=== PATIENT | female | born 1995 | race Caucasian/White ===

== ENCOUNTER 2020-06-10 21:42 | Observation (INO) | payer OTHER, SELFPAY ==
[2020-06-10 22:41] LABS: Add Urine Microscopic? YES; Appearance Urine Cloudy (Clear); Bacteria Urine Trace /hpf; Bilirubin Urine Negative (Negative); Blood Urine Negative (Negative); Color Urine Yellow (Yellow); Glucose Urine UA Negative (Negative); Ketones Urine 1+ mg/dL (Negative); Leukocyte Esterase Ur 3+ LEU/UL (NEGATIVE); Mucus Urine Heavy /lpf; Nitrate Urine Negative (Negative); Protein Urine 1+ mg/dL (Negative); Specific Grav Ur 1.027 (1.001-1.035); Squamous Epithelial Cell Urine Many /hpf (Few); Urobilinogen Urine Negative mg/dL (<2.0); WBC Urine 31-50 /hpf (0-3)
[2020-06-10 22:49] LABS: Alanine Aminotransferase 15 U/L (4-35); Albumin Level 4.6 g/dL (3.5-5.1); Alkaline Phosphatase 70 U/L (38-126); Anion Gap 10 mmol/L (8-16); Aspartate Amino Transferase 25 U/L (14-36); Blood Urea Nitrogen 8 mg/dL (7-17); Calcium 9.7 mg/dL (8.4-10.2); Carbon Dioxide 24 mmol/L (22-30); Chloride 103 mmol/L (98-107); Estimated Glomerular Filt Rate > 60; Glucose 93 mg/dL (65-105); Potassium 3.6 mmol/L (3.4-5.0); Sodium 137 mmol/L (137-145)
[2020-06-10 23:02] VITALS: BP 101/52; PULSE 59; TEMP 36.3
[2020-06-10] MEDS: DEXTROSE 5%/LACTATED RINGERS 1,000 ML 999 ML IV CONT (23:02)
[2020-06-10] MEDS: FAMOTIDINE 20 MG/2 ML VIAL IV PUSH (23:03)
[2020-06-10] MEDS: ONDANSETRON INJ 4 MG/2 ML VIAL IV PUSH (23:03)
[2020-06-10 23:04] VITALS: BMI 21.0
--- NOTE | 2020-06-10 23:05 | OBADM ---
This patient, Jammie Miller, admitted to the OB room OB Post 113 for observation. Patient/family oriented to hospital policies and general routines including ID bracelet, bed and alarms, visiting hours, pain management, procedures, bathroom and other care routines, personal items, smoking policy, room service/diet, and visiting hours. Patient/Family are encouraged to report perceived risks to care and to ask questions if they do not understand what they are told or what they should do.
[2020-06-10] MEDS: DEXTROSE 5%/LACTATED RINGERS 1,000 ML 200 ML IV CONT (23:56)
[2020-06-11] MEDS: DEXTROSE 5%/LACTATED RINGERS 1,000 ML 200 ML IV CONT (05:02)
--- NOTE | 2020-06-11 05:07 | PC.NURSE ---
In to check on pt. Pt denies vomiting during the night. No request for zofran. Crackers and andre mist given. Pt states she has sipped on water. No void since admission.
[2020-06-11 07:19] VITALS: BP 92/55; PULSE 73; TEMP 37.1
[2020-06-11] MEDS: ONDANSETRON INJ 4 MG/2 ML VIAL IV PUSH (08:47)
[2020-06-11] MEDS: ACETAMINOPHEN 500 MG TABLET 1000 MG PO (08:48)
--- NOTE | 2020-06-12 12:47 | PM.OBTRLD ---
OB - Triage/Final Diagnosis Evaluation Laboratory results: Laboratory Tests 06/10/20 06/10/20 22:29 22:29 Sodium 137 Potassium 3.6 Chloride 103 Carbon Dioxide 24 Anion Gap 10 BUN 8 Creatinine 0.50 L Estim Creat Clear Calc Not Reportable Estimated GFR > 60 Glucose 93 Calcium 9.7 Total Bilirubin 1.0 AST 25 ALT 15 Alkaline Phosphatase 70 Total Protein 8.0 Albumin 4.6 Urine Color Yellow Urine Appearance Cloudy H Urine pH 6.0 Ur Specific [place] 1.027 Urine Protein 1+ H Urine Glucose (UA) Negative Urine Ketones 1+ H Ur Blood (Man) Negative Urine Nitrate Negative Urine Bilirubin Negative Urine Urobilinogen Negative Ur Leukocyte Esterase 3+ H Urine RBC 3-5 H Urine WBC 31-50 H Ur Squamous Epith Cells Many H Urine Bacteria Trace Urine Mucus Heavy H Final Diagnosis (1) Hyperemesis affecting , antepartum: Code(s): O21.0 - Mild hyperemesis gravidarum Status: Acute
== END 2020-06-11 09:53 | disposition home or self-care (01) ==
PROVIDERS: Admitting Provider Obstetrics & Gynecology; PCP Internal Medicine; Visit Provider Obstetrics & Gynecology
DX: O21.0 Mild hyperemesis gravidarum (principal); Z3A.00 Weeks of gestation of pregnancy not specified
CPT/HCPCS: 36415; 80053; 81001; 87086; 87088; 96361; 96374; 96375; A9270; G0378; G0379; J2405; J7121

== ENCOUNTER 2021-01-04 17:14 | Inpatient (IN) | payer OTHER, SELFPAY ==
[2021-01-04] VITALS (10 sets, daily range): BP systolic 101–115; BP diastolic 62–74; PULSE 63–92; TEMP 36.5
--- NOTE | 2021-01-04 17:45 | LDADM ---
This patient, Jammie Miller, was admitted to Labor/Delivery/Recovery 106 on 01/04/21 at 17:14. Plans for labor, pain management and were discussed with patient. Patient/family oriented to hospital policies and general routines including ID bracelet, bed and alarms, visiting hours, pain management, procedures, bathroom and other care routines, personal items, smoking policy, room service/diet and guest tray routines, security routines, and visiting hours. Patient/Family are encouraged to report perceived risks to care and to ask questions if they do not understand what they are told or what they should do. See OBIX for further documentation.
[2021-01-04 18:00] LABS: Basophils Percent Auto 0.2 % (0.2-1.2); Eosinophils Absolute Auto 0.1 K/mm3 (0-0.3); Eosinophils Percent Auto 0.7 % (0-4.4); Hematocrit 34.8 % (37.0-47.0); Immature Granulocyte Absolute 0.05 K/mm3 (0.00-0.031); Immature Granulocyte Percent A 0.6 % (0-0.5); Lymphocytes Absolute Auto 1.43 K/mm3 (0.9-3.2); Lymphocytes Percent Auto 16.1 % (18.3-44.2); Mean Corpuscular HGB Conc 34.5 g/dl (32-36); Mean Corpuscular Hemoglobin 32.5 pg (26-34); Mean Corpuscular Volume 94.3 fl (80-100); Monocytes Absolute Auto 0.4 K/mm3 (0.1-0.6); Monocytes Percent Auto 4.7 % (2.6-8.5); Neutrophils Absolute Auto 6.9 K/mm3 (1.3-6.7); Neutrophils Percent Auto 77.7 % (45.5-73.1); Platelet Count Result 169 k/mm3 (150-375); Red Blood Count 3.69 M/mm3 (4.2-5.4); White Blood Count 8.9 K/mm3 (4.5-10.0)
[2021-01-04] MEDS: DINOPROSTONE 10 MG VAG INSERT VAGINAL (18:02)
--- NOTE | 2021-01-04 19:11 | P.PNAN_ITS ---
Anes - Initial Pre Proc Eval Procedure: labor epidural Date/Time: 01/04/21 19:11 Surgeon: Eliceo Rosas MD Pre Op Diagnosis: labor pain Pre Op Diagnosis: ind Patient Data Age: 25 Gender: F Height: Weight: Last Vital Signs Temp 36.5 C 01/04/21 18:19 Pulse 92 01/04/21 19:00 BP 106/64 01/04/21 19:00 Allergies Allergy/AdvReac Type Severity Reaction Status Date / Time No Known Allergies Allergy Verified 06/10/20 22:32 Home Medications Medication Instructions Recorded Confirmed Type prenat.vits,brian,nvh-qpai-bhizv 1 tablet PO DAILY 06/10/20 12/31/20 History Laboratory Tests 01/04/21 01/04/21 01/04/21 17:49 17:49 17:49 WBC 8.9 K/mm3 K/mm3 (4.5-10.0) RBC 3.69 M/mm3 L M/mm3 (4.2-5.4) Hgb 12.0 g/dL g/dL (12.0-15.0) Hct 34.8 % L % (37.0-47.0) MCV 94.3 fl fl (80-100) MCH 32.5 pg pg (26-34) MCHC 34.5 g/dl g/dl (32-36) RDW 13.0 % % (11.5-14.5) Plt Count 169 k/mm3 k/mm3 (150-375) MPV 11.0 fl H fl (7.4-10.4) Immature Gran % (Auto) 0.6 % H % (0-0.5) Neut % (Auto) 77.7 % H % (45.5-73.1) Lymph % (Auto) 16.1 % L % (18.3-44.2) [place] % (Auto) 4.7 % % (2.6-8.5) Eos % (Auto) 0.7 % % (0-4.4) Baso % (Auto) 0.2 % % (0.2-1.2) Lymph # (Auto) 1.43 K/mm3 K/mm3 (0.9-3.2) [place] # (Auto) 0.4 K/mm3 K/mm3 (0.1-0.6) Eos # (Auto) 0.1 K/mm3 K/mm3 (0-0.3) Baso # (Auto) 0.0 K/mm3 K/mm3 (0.0-0.1) Abs Immat Gran (auto) 0.05 K/mm3 H K/mm3 (0.00-0.031) Absolute Neuts (auto) 6.9 K/mm3 H K/mm3 (1.3-6.7) Absolute Nucleated RBC 0.0 K/mm3 K/mm3 (0.0-0.012) Nucleated RBC % 0.0 % % (0.0-0.2) RPR Pending Blood Type O Positive Antibody Screen Negative Patient hx anesthesia problems: none Family hx anesthesia problems: none [facility] Family History Family History (Updated 12/31/20 @ 14:24 by Anayeli Haskins RN) Other No pertinent family history Social History Social History Smoking status: Never smoker Substance use: never Gender identity (if verbalized by the patient): Female Spiritual care concerns: No Anes - Eval Final PreProcedure Day of Procedure 01/04/21 19:11 Patient weight: normal ASA classification: II Anesthesia type and monitoring: regional epidural Informed Consent: The patient's anesthetic plan and its attendant risks and benefits were discussed with the patient/family/POA. Questions were solicited and answers provided to the satisfaction of the patient/family/POA.
[2021-01-05] VITALS (100 sets, daily range): BP systolic 92–128; BP diastolic 49–109; PULSE 60–91; RESP 15–16; TEMP 36.2–37.7; O2SAT 96–100
[2021-01-05] MEDS: fentaNYL CITRATE INJ (*CRX) 100 MCG/2 ML VIAL 50 MCG IV PUSH (03:12)
[2021-01-05] MEDS: fentaNYL CITRATE INJ (*CRX) 100 MCG/2 ML VIAL IV PUSH (04:25)
[2021-01-05] MEDS: LACTATED RINGERS 1,000 ML 125 ML IV CONT (05:15)
[2021-01-05] MEDS: OXYTOCIN 30 UNITS/NS 500 ML 30 UNITS/500 ML BAG IV CONT (05:21)
[2021-01-05 07:00] LABS: Rapid Plasma Reagin Non-Reactive (NonReactive)
--- NOTE | 2021-01-05 09:11 | WPDHPUPDATE1 ---
History and Physical Update Update Date/Time: 01/05/21 09:11 History and Physical has been reviewed, including an updated exam of the patient. There are NO changes in the patient's condition. Risks, benefits, and alternatives have been discussed and questions answered. Patient agrees to proceed with procedure.
--- NOTE | 2021-01-05 09:11 | WPDOBADMIT ---
Obstetrics - Admit Note Admission Note: record reviewed. No pertinent additions to the history and/or any subsequent changes in the physical findings that are not consistent with the expected course of the were found. Additions to the history and/or subsequent changes in the physical findings follow. None.
--- NOTE | 2021-01-05 09:11 | PM.OBPRVD ---
OB - Delivery Note Procedure Route of delivery: Episiotomy description: None Laceration Description: None Specimen: No Quantitative Blood Loss (ml): 300 Anesthesia type: Epidural Disposition: floor Narrative: Patient prepped in usual manner for this procedure. Maternal expulsive efforts readily delivered vertex with nuchal cord noted x2 and readily reduced. Rest of baby was delivered cord clamped and cut placenta delivered spontaneously. Uterus was well contracted. No significant bleeding at this point immediate postop condition mother and baby were both excellent. [place] Baby Weeks of gestation at delivery: 39 Infant gender: Female Weight (pounds): 7 Weight (ounces): 3 score one minute: 9 score five minutes: 9
[2021-01-05] MEDS: OXYTOCIN 30 UNITS/NS 500 ML 30 UNITS/500 ML BAG 125 UNITS IV CONT (09:41)
--- NOTE | 2021-01-05 12:25 | PC.NURSE ---
Patient transferred to post room # 283 via wheelchair. Support person present. Oriented to unit, room, information board, rooming in, admission packet and security measures. Patient verbalizes understanding. PT received education and instructions per one to one discussion, mom baby care guide and demonstration. pt and spouse both recipients of instructions. no barriers to learning noted.
--- NOTE | 2021-01-05 12:55 | PC.NURSE ---
Mother called out for assist with feeding. Mother reports infant eagerly latched for first feeding with minimal tenderness. Reviewed infant feeding cues, frequencies, duration of feedings, feeding elimination flow sheet, and signs of adequate intake. Demonstrated stimulation techniques to wake for feeding. Assisted with to breast. Reviewed positioning/alignment in cross cradle, holding breast in ?U? hold and guided asymmetrical latch on. Several attempts before able to latch correctly. nursed eagerly, with steady draws and frequent swallowing noted. Reviewed signs of a correct latch, effective nursing and suck swallow ratio. Infant would slip to shallow latch, mother reports tenderness. Demonstrated how to adjust latch more deeply while feeding. Mother reports she can feel change in latch and has no tenderness. Nipple care reviewed of lanolin after feedings, warm compresses and gel pads as needed. Suggested mother stimulate while feeding to increase stimulate, increase intake and to assist with maintaining deep latch. Instructed mother to call out for RN assistance if she is unable to latch for feeding or she has discomfort with nursing. Instructed feeding should be initiated three hours from start of last feeding or if feeding cues are noted before. Mother voiced understanding of information shared.
[2021-01-05] MEDS: DOCUSATE SODIUM 100 MG CAPSULE PO (17:32)
[2021-01-05] MEDS: IBUPROFEN 600 MG TABLET PO (23:58)
[2021-01-06] VITALS: BP 118/79; PULSE 70; RESP 18; TEMP 37.1
[2021-01-06 04:40] VITALS: BP 112/66; PULSE 75; RESP 17; TEMP 36.9
[2021-01-06 06:04] LABS: Hematocrit 30.7 % (37.0-47.0); Hemoglobin 10.4 g/dL (12.0-15.0)
--- NOTE | 2021-01-06 07:25 | WPDANLDPN2 ---
Anes-Prog Note L&D Date/Time: 01/06/21 07:25 Comfortable throughout: labor and delivery Neuraxial method: epidural Epidural/Spinal procedure site: clean & non-tender Neuro status: Neuro function grossly intact. Cardiovascular status: normal Respiratory status: normal Airway patency: baseline Mental status: baseline Post-Op hydration status: normal Vital Signs: Last Vital Signs Temp 36.9 C 01/06/21 04:40 Pulse 75 01/06/21 04:40 Resp 17 01/06/21 04:40 BP 112/66 01/06/21 04:40 Pulse Ox 96 01/05/21 14:10 Pain score (VAS): 08/15 I/O: Intake & Output 01/05/21 01/05/21 01/06/21 15:59 23:59 07:59 Intake Total 500 Output Total 375 Balance 125 Post-procedural complaints: none Patient feedback: Patient satisfied with anesthetic care.
[2021-01-06 08:00] VITALS: BP 103/63; PULSE 80; RESP 18; TEMP 36.7; O2SAT 97
--- NOTE | 2021-01-06 10:00 | PC.NURSE ---
Consult with pt., mother states she has decided to bottle feed. Reviewed engorgement/relief.
--- NOTE | 2021-01-06 10:54 | PM.OBDSVD ---
DS: Admitting Diagnosis Admitting Diagnosis Admitting Diagnosis: OB - DS: Summary OB Procedures : None OB Procedures Intrapartum: Spontaneous Vag Delivery OB Procedures: : None Time Spent with Patient Time attestation: Total time spent providing and/or coordinating discharge services: DS: Data Data Completed and Pending Labs on day of discharge: Labs from last 24 hours 01/06/21 05:48 Hgb 10.4 L Hct 30.7 L Discharge Plan Discharge Discharging Clinician: Eliceo Rosas Patient Disposition: Home, Self-Care Activity: as tolerated Diet: as tolerated Patient Instructions: Antibiotic Form Stand Alone Forms: General Discharge Information Follow-up/Referrals: Eliceo Rosas MD [Physician] - 3 Weeks Discharge Medications: New ibuprofen 600 mg Tablet 600 mg PO Q6H PRN (Reason: Cramping) Qty: 30 RF: 0 Continued prenat.vits,brian,ufq-eray-tidjy Tablet 1 tablet PO DAILY RF: 0 Date of admission: 01/04/21 17:14 Primary Care Provider: NelsonJaret Admitting Provider: Eliceo Rosas Attending physician on admission: Eliceo Rosas Condition: Stable
--- NOTE | 2021-01-06 12:21 | PC.NURSE ---
Nurse follow up appointment scheduled for tomorrow at 10 am, patient states that she has a manager statistical appointment scheduled for 10 am tomorrow, there are no other appointment times available. Discussed induced hypertension with the patient, handout provided, pt. will monitor BP at home if needed and call the Doctor if signs and symptoms appear.
== END 2021-01-06 12:30 | disposition home or self-care (01) | DRG 807 ==
LOC: ANHLDR 01-05 10:21 → ANHOB2 01-05 12:29
PROVIDERS: Admitting Provider Obstetrics & Gynecology; PCP Internal Medicine; Visit Provider Obstetrics & Gynecology
DX: O69.81X0 Labor and delivery complicated by cord around neck, without compression, not applicable or unspecified (principal); Z37.0 Single live birth; Z3A.39 39 weeks gestation of pregnancy
CPT/HCPCS: 36415; 85014; 85018; 85025; 86592; 86850; 86900; 86901; A9270; J2590; J3010; J7120

== ENCOUNTER → 2021-08-25 10:10 | Outpatient (CLI) | payer OTHER, SELFPAY ==
--- NOTE | ~2021-08-25 | US_ITS ---
EXAMINATION: US pelvic complete w TV EXAM DATE: 08/25/2021 10:35 INDICATION: N93.9 - Abnormal uterine and vaginal bleeding, unspecified. TECHNIQUE: Pelvic transabdominal and transvaginal sonogram was performed. There are multiple graysca le and Doppler images available for interpretation. There is no prior study for comparison. FINDINGS: Uterus measures 8.9 x 4.7 x 6.2 cm, and is morphologically normal. Endometrial stripe tip sures 17 mm, upper limits of normal. There is trace free pelvic fluid. Right adnexa: The ovary measures 4.2 x 2.1 x 4.0 cm and is morphologically normal. Ovarian vascular f low confirmed. Left adnexa: The ovary measures 2.7 x 2.2 x 2.8 cm and is morphologically normal. Ovarian vascular fl ow confirmed. IMPRESSION: Endometrial stripe 17 mm in thickness, upper limits of normal. Reviewed, dictated and finalized at location B. IFIED NURSING ATTENDANT
== END ==
PROVIDERS: Visit Provider Obstetrics & Gynecology
DX: N93.9 Abnormal uterine and vaginal bleeding, unspecified (principal)
CPT/HCPCS: 76830; 76856

== ENCOUNTER → 2021-09-17 08:55 | Outpatient (CLI) | payer OTHER, SELFPAY ==
--- NOTE | ~2021-09-17 | US_ITS ---
EXAMINATION: US pelvic complete w TV DATE: 09/17/2021 09:24 INDICATION: Menorrhagia. Thickened endometrial complex. TECHNIQUE: Multiple transabdominal and transvaginal sonographic images of the pelvis were obtained. COMPARISON: Pelvis ultrasound 08/25/2021 FINDINGS: TRANSABDOMINAL ULTRASOUND: The uterus measures 8.0 x 4.2 x 5.4 cm. There is no free fluid in the pelvis. TRANSVAGINAL ULTRASOUND: The endometrial complex measures 10 mm in thickness. The right ovary measures 2.1 x 1.5 x 3.0 cm. The left ovary measures 2.9 x 3.0 x 2.8 cm. There is normal vascular flow in the ovaries. IMPRESSION: 1. Normal pelvis. Reviewed, dictated and finalized at location E. SPORTATION ASSISTANT IMPRESSION: 1. Normal pelvis.
== END ==
PROVIDERS: Visit Provider Obstetrics & Gynecology
DX: R93.89 Abnormal findings on diagnostic imaging of other specified body structures (principal)
CPT/HCPCS: 76830; 76856

== ENCOUNTER 2023-05-22 13:13 | Outpatient (NON) | payer OTHER, SELFPAY | END 2023-05-22 13:14 | disposition home or self-care (01) | LOC: ANHLAB 05-23 13:15 | PROVIDERS: Visit Provider Nurse Practitioner | DX: D22.5 Melanocytic nevi of trunk (principal); D48.5 Neoplasm of uncertain behavior of skin | CPT/HCPCS: 88305 ==

== ENCOUNTER 2024-02-13 20:21 | Observation (INO) | payer OTHER, SELFPAY ==
[2024-02-13] VITALS (11 sets, daily range): BP systolic 92–109; BP diastolic 58–72; PULSE 75–97; O2SAT 97–100; BMI 21.2
--- NOTE | 2024-02-13 20:24 | PC.NURSE ---
Addendum entered by Madina Casey RN 02/13/24 23:27: Pt denies any cramping or pain. Original Note: Pt arrives to unit with vaginal bleeding.
--- NOTE | 2024-02-13 21:45 | PC.NURSE ---
Called Dr. Marin, update on pt and vaginal bleeding. Orders received to discharge pt and have pt seen in the ER due to gestational age.
--- NOTE | 2024-02-13 21:57 | PC.NURSE ---
Pt discharged with instructions to be evaluated in the ER. Pt verbalizes understanding.
--- NOTE | 2024-02-13 23:11 | OBADM ---
This patient, Jammie Miller, admitted to the OB room OB Post 116 for observation. Patient/family oriented to hospital policies and general routines including ID bracelet, bed and alarms, visiting hours, pain management, procedures, bathroom and other care routines, personal items, smoking policy, room service/diet, and visiting hours. Patient/Family are encouraged to report perceived risks to care and to ask questions if they do not understand what they are told or what they should do.
--- NOTE | 2024-02-14 08:29 | PM.OBTRLD ---
OB - Triage/Final Diagnosis Visit Information Date of evaluation: 02/13/24 Reason for evaluation: other (bleeding in early ) Comments/Additional reasons for admission: I have assessed the risk for this patient, Jammei Mliler, and determined that she would benefit from observation care. Evaluation Vital signs: Vital Signs - 24 hr 02/13/24 20:56 02/13/24 20:57 02/13/24 21:00 Pulse Rate 97 84 Blood Pressure 92/72 L 97/58 L Pulse Oximetry 99 Oxygen Delivery 02/13/24 21:01 02/13/24 21:06 02/13/24 21:11 Pulse Rate Blood Pressure Pulse Oximetry 98 98 97 Oxygen Delivery 02/13/24 21:16 02/13/24 21:21 02/13/24 21:26 Pulse Rate Blood Pressure Pulse Oximetry 98 99 99 Oxygen Delivery 02/13/24 21:30 02/13/24 21:31 02/13/24 21:51 Pulse Rate 79 Blood Pressure 109/67 Pulse Oximetry 100 Oxygen Delivery Room Air
== END 2024-02-13 21:57 | disposition home or self-care (01) ==
PROVIDERS: Admitting Provider Student in an Organized Health Care Education/Training Program; Visit Provider Student in an Organized Health Care Education/Training Program
DX: O46.90 Antepartum hemorrhage, unspecified, unspecified trimester (principal); Z3A.00 Weeks of gestation of pregnancy not specified
CPT/HCPCS: G0378; G0379

== ENCOUNTER 2024-02-14 09:56 | Outpatient (CLI) | payer OTHER, SELFPAY ==
--- NOTE | ~2024-02-14 | US_ITS ---
EXAMINATION: US OB <=14 wk fetus w TV DATE: 02/14/2024 11:17 INDICATION: Vaginal bleeding postmissed TECHNIQUE: Real-time pelvic ultrasound utilizing both a transvaginal and transabdominal probe was pe rformed. The interpreting radiologist was not present for the study. COMPARISON: None. FINDINGS: The uterus measures 11.1 x 5.5 x 7.1 cm. There is an intrauterine gestational sac. A yolk sac and fe danette pole are identified. The crown rump length measures 5 mm, which correlates with an estimated gest ational age of 6 weeks and 1 days. heart motion is identified measuring 123 beats per minute (b pm) by M-mode Doppler. There is a 2.1 x 1.4 x 0.9 cm mixed hypoechoic and anechoic subchorionic hemat kris along the right side of the gestational sac. Normal cervical length of 5.7 cm. The right ovary measures 3.4 x 3.0 x 3.5 cm. 2.4 cm anechoic likely corpus luteum cyst in the right o vary. Vascular flow identified within the right ovary on color Doppler. The left ovary is not visuali zed. There is trace amount of anechoic free fluid in the pelvis. IMPRESSION: 1. Single living fetus with heart rate of 123 bpm. 2. Gestational age by ultrasound of 6 weeks 1 day(s) +/- 4 day(s) with ultrasound estimated date of delivery (CUATE) of 10/08/2024. Reviewed, dictated and finalized at location A. IMPRESSION: 1. Single living fetus with heart rate of 123 bpm. 2. Gestational age by ultrasound of 6 weeks 1 day(s) +/- 4 day(s) with ultraso und estimated date of delivery (CUATE) of 10/08/2024.
== END 2024-02-14 09:57 | disposition home or self-care (01) ==
PROVIDERS: Visit Provider Obstetrics & Gynecology
DX: O02.1 Missed abortion (principal)
CPT/HCPCS: 76801; 76817

== ENCOUNTER 2024-04-26 20:08 | Observation (INO) | payer OTHER, SELFPAY ==
[2024-04-26 20:43] LABS: Add Urine Microscopic? YES; Appearance Urine Turbid (Clear); Bacteria Urine 3+ /hpf; Bilirubin Urine Negative (Negative); Blood Urine Negative (Negative); Color Urine Yellow (Yellow); Glucose Urine UA Negative (Negative); Ketones Urine 2+ mg/dL (Negative); Leukocyte Esterase Ur 3+ LEU/UL (Negative); Nitrate Urine Negative (Negative); Non Pathogenic Casts 0-2; Protein Urine Negative (Negative); RBC Urine 0-2 /hpf (0-2); Specific Grav Ur 1.013 (1.001-1.035); Squamous Epithelial Cell Urine Many /hpf (Few); WBC Urine 51-100 /hpf (0-3); pH Urine 7.5 (5.0-9.0)
[2024-04-26 20:44] VITALS: BMI 20.7
--- NOTE | 2024-04-26 20:44 | OBADM ---
This patient, Jammie Miller, admitted to the OB room OB Post 117 for observation. Patient/family oriented to hospital policies and general routines including ID bracelet, bed and alarms, visiting hours, pain management, procedures, bathroom and other care routines, personal items, smoking policy, room service/diet, and visiting hours. Patient/Family are encouraged to report perceived risks to care and to ask questions if they do not understand what they are told or what they should do.
--- NOTE | 2024-04-26 20:53 | PC.NURSE ---
Addendum entered by Clau Pantoja RN 04/27/24 01:08: 0108- Pt asleep. Even chest rise and fall noted. Addendum entered by Clau Pantoja RN 04/27/24 00:38: 0013- called and made aware of persistence of n/v. Order received for dose of Reglan Addendum entered by Clau Pantoja RN 04/26/24 23:11: 2309- called and made aware of completion of IV fluids and phenergan. Orders received for additional dose of phenergan. Addendum entered by Clau Pantoja RN 04/26/24 22:57: 2206- Pt states that medication and 1st bag of fluids have given minimal relief Original Note: 2048- called and made aware of pts arrival to unit with c/o n/v and inability to hold PO foods and liquids down. MD made aware of latest U/A results as well as doppled FHTs in 150's. Orders received for IV fluids and Phenergan. Pt ok to d/c to home if interventions are successful
[2024-04-26] MEDS: LACTATED RINGERS 1,000 ML 999 ML IV CONT ×2 (21:06→22:06)
[2024-04-26] MEDS: PROMETHAZINE HCL 25 MG/ML AMPUL 12.5 MG IV PUSH ×2 (21:06→23:16)
[2024-04-26 21:09] VITALS: PULSE 80; O2SAT 100
[2024-04-26 21:10] VITALS: BP 95/62; PULSE 69
[2024-04-27] MEDS: METOCLOPRAMIDE HCL INJ 10 MG/2 ML VIAL 5 MG IV PUSH (00:35)
--- NOTE | 2024-04-29 08:11 | P.PNOB_ITS ---
OB - Triage/Final Diagnosis Visit Information Date of evaluation: 04/27/24 Reason for evaluation: other (nasuea) Comments/Additional reasons for admission: I have assessed the risk for this patient, Jammie Miller, and determined that she would benefit from observation care. Evaluation Laboratory results: Laboratory Tests 04/26/24 20:23 Urine Color Yellow Urine Appearance Turbid H Urine pH 7.5 Ur Specific [place] 1.013 Urine Protein Negative Urine Glucose (UA) Negative Urine Ketones 2+ H Ur Blood (Man) Negative Urine Nitrate Negative Urine Bilirubin Negative Urine Urobilinogen 1.0 Ur Leukocyte Esterase 3+ H Urine RBC 0-2 Urine WBC 51-100 Ur Squamous Epith Cells Many H Urine Bacteria 3+ H Urine Casts 0-2
== END 2024-04-27 01:51 | disposition home or self-care (01) ==
PROVIDERS: Admitting Provider Student in an Organized Health Care Education/Training Program; Visit Provider Student in an Organized Health Care Education/Training Program
DX: O21.0 Mild hyperemesis gravidarum (principal); Z3A.13 13 weeks gestation of pregnancy
CPT/HCPCS: 81001; 96361; 96374; 96375; 96376; G0378; G0379; J2550; J2765; J7120

== ENCOUNTER 2024-05-16 10:27 | Outpatient (CLI) | payer OTHER, SELFPAY ==
--- NOTE | ~2024-05-16 | US_ITS ---
EXAMINATION: US OB /maternal detail DATE: 05/16/2024 11:38 INDICATION: anatomic survey. TECHNIQUE: Real-time ultrasound of the pelvis was performed. COMPARISON: Ultrasound 04/02/2024, 02/14/2024 FINDINGS: There is a single living fetus in breech presentation. The placenta is posterior, 5.4 cm from the ce rvix. heart rate is 140 beats per minute (bpm). The amniotic fluid volume is subjectively reggie l. The cervical length is 3.4 cm on transabdominal images, which is normal. The following biometric data were obtained: Biparietal diameter (BPD): 4.7 cm; head circumference (HC): 17.2 cm; abdominal circumference (AC): 15 .3 cm; femur length (FL): 3.0 cm. These measurements are concordant. Estimated weight is 322 g +/- 48 g, which correlates with the 82nd percentile when 10/08/24 is us ed as estimated date of delivery. As single measurements, these parameters are each equal to the following estimated gestational ages: BPD: 20 weeks 1 days. HC: 19 weeks 5 days. AC: 20 weeks 3 days. FL: 19 weeks 2 days. estimated gestational age based solely on measurements from this exam is 19 weeks 6 days +/- 1 weeks 3 days. The cerebral ventricles, cerebellum, cisterna magna, nuchal fold, lip, and spine are normal. The hear t is normal. The diaphragm, stomach, kidneys, and bladder are normal. There are two umbilical arterie s to yield a 3-vessel cord. The cord insertion is normal. IMPRESSION: 1. Single living fetus in breech presentation. 2. Estimated weight is 322 g +/- 48 g, which correlates with the 82nd percentile when 10/08/24 i s used as estimated date of delivery. This date was set by ultrasound on 02/14/2024. 3. Normal anatomic survey. Reviewed, dictated and finalized at location A. IMPRESSION: 1. Single living fetus in breech presentation. 2. Estimated weight is 322 g +/- 48 g, which correlates with the 82nd pe rcentile when 10/08/24 is used as estimated date of delivery. This date was set b y ultrasound on 02/14/2024. 3. Normal anatomic survey.
== END 2024-05-16 10:28 | disposition home or self-care (01) ==
LOC: MICIMG 10:28
PROVIDERS: PCP Obstetrics & Gynecology; Visit Provider Obstetrics & Gynecology
DX: Z36.89 Encounter for other specified antenatal screening (principal); Z3A.00 Weeks of gestation of pregnancy not specified
CPT/HCPCS: 76805

== ENCOUNTER 2024-10-03 08:16 | Inpatient (IN) | payer OTHER, SELFPAY ==
[2024-10-03] VITALS (17 sets, daily range): BP systolic 119–193; BP diastolic 55–170; PULSE 62–212; RESP 16; TEMP 36.2–36.7; O2SAT 87–99
--- NOTE | 2024-10-03 08:20 | LDADM ---
This patient, Jammie Miller, was admitted to Labor/Delivery/Recovery 108 on 10/03/24 at 08:16. Plans for labor, pain management and were discussed with patient. Patient/family oriented to hospital policies and general routines including ID bracelet, bed and alarms, visiting hours, pain management, procedures, bathroom and other care routines, personal items, smoking policy, room service/diet and guest tray routines, security routines, and visiting hours. Patient/Family are encouraged to report perceived risks to care and to ask questions if they do not understand what they are told or what they should do. See OBIX for further documentation.
--- NOTE | 2024-10-03 08:57 | WPDOBADMIT ---
Obstetrics - Admit Note Admission Note: record reviewed. No pertinent additions to the history and/or any subsequent changes in the physical findings that are not consistent with the expected course of the were found. Additions to the history and/or subsequent changes in the physical findings follow. None. presented in active labor, 10cm dilated AROM, 0827 thick mec pedi called to bedside for delivery
--- NOTE | 2024-10-03 08:58 | PM.OBPRVD ---
OB - Vaginal Delivery Note Procedure Delivery date: 10/03/24 Delivery augmentation: Rupture of Membranes Delivery monitor: External FHT and External Uterine Route of delivery: Episiotomy description: None Laceration Description: Perineal - 1st Degree Specimen: Yes (placenta) Quantitative Blood Loss (ml): 300 Anesthesia type: None Disposition: Floor Complications: No immediate complications Baby Date of : 10/03/24 Time of : 08:40 Gestational Age by Date: 39 (.2) gender: Female Weight (pounds): 9 Weight (ounces): 6 presentation: vertex position: Left Occiput Anterior Placenta delivery description: Expressed Cord Vessel Description: 3 Vessels score one minute: 9 score five minutes: 9 Narrative: Jammie presented and was found to be completely dilated with strong desire to push. After IV was placed a ROM was performed and thick meconium was noted. The pediatric team was notified and present at bedside. She pushed for approximately 10 minutes was good maternal effort. She delivered the head over intact perineum. No nuchal cord was palpated. She easily delivered the 's shoulders and body without complication. Due to the thick meconium the mouth and nose were bulb suction of the baby was crying and gurgling. Pediatric team desired for the umbilical cord to be immediately clamped and cut. The was then handed off to the awaiting pediatric team. A segment of the cord was collected for cord gases. The remaining cord blood was collected for typing. She did or significant pain therefore fentanyl 100 mcg was given IV. Once that had taken effect the placenta was delivered without complication. Brisk bleeding was noted and bimanual massage was performed and good uterine tone with minimal bleeding was then noted. She was examined and a very small first-degree laceration was identified but was not bleeding and she desired to not have it repaired as it was less than 1 cm. Sponge, lap, instrument, and needle counts were correct at the end of the procedure. Mom and baby were left bonding in the birthing suite in stable condition.
[2024-10-03 09:11] LABS: Basophils Percent Auto 0.3 % (0.2-1.2); Eosinophils Absolute Auto 0.1 K/mm3 (0-0.3); Eosinophils Percent Auto 0.6 % (0-4.4); Hematocrit 38.6 % (37.0-47.0); Hemoglobin 13.1 g/dL (12.0-15.0); Immature Granulocyte Absolute 0.05 K/mm3 (0.00-0.031); Immature Granulocyte Percent A 0.6 % (0-0.5); Lymphocytes Absolute Auto 1.61 K/mm3 (0.9-3.2); Lymphocytes Percent Auto 18.3 % (18.3-44.2); Mean Corpuscular HGB Conc 33.9 g/dl (32-36); Mean Corpuscular Hemoglobin 32.1 pg (26-34); Mean Corpuscular Volume 94.6 fl (80-100); Mean Platelet Volume 12.3 fl (7.4-10.4); Monocytes Absolute Auto 0.5 K/mm3 (0.1-0.6); Monocytes Percent Auto 5.6 % (2.6-8.5); Neutrophils Absolute Auto 6.6 K/mm3 (1.3-6.7); Neutrophils Percent Auto 74.6 % (45.5-73.1); Platelet Count Result 160 k/mm3 (150-375); Red Blood Count 4.08 M/mm3 (4.2-5.4); Red Cell Distribution Width 12.6 % (11.5-14.5); White Blood Count 8.8 K/mm3 (4.5-10.0)
[2024-10-03] MEDS: OXYTOCIN 30 UNITS/NS 500 ML 30 UNITS/500 ML BAG 125 UNITS IV CONT (09:19)
[2024-10-03 10:10] LABS: HIV 1/2 Ab P24 Ag Result Negative (Negative)
[2024-10-03 10:13] LABS: Syphilis IgG/IgM Antibody Negative (Negative)
[2024-10-03] MEDS: IBUPROFEN 600 MG TABLET PO ×2 (10:14→20:19)
[2024-10-03] MEDS: BENZOCAINE 20% AER SPR (*SP) 56 GM CAN 1 SPRAY TOPICAL (10:15)
[2024-10-03] MEDS: HYDROcodone/acetaminophen (*CRX) 5-325 MG TABLET 1 TAB PO (10:15)
[2024-10-03] MEDS: WITCH HAZEL 40 PADS 1 PAD TOPICAL (10:15)
--- NOTE | 2024-10-03 14:40 | OBPPTRN ---
Patient transferred to post room #288 via wheelchair. Support person present. Oriented to unit, room, information board, rooming in, admission packet and security measures. Patient verbalizes understanding.
--- NOTE | 2024-10-03 18:30 | PC.NURSE ---
Breast pump provided due to separation from infant. Instructions given on cleaning, care, usage, that there should be no pain, pumping schedule for milk production, collection, and storage of human milk. Patient was assessed for correct placement, flange size, to pump for comfort and nipple stretching/stimulation for adequate milk production every 3 hours (8 times in 24 hours) 1-2 times at night.
--- NOTE | 2024-10-03 19:29 | PC.NURSE ---
1715 Introductions were made and information written on her board. Breast pump provided due to baby being transferred to [facility]. Mother had requested an insurance breast pump to use and take home, RN retrieved a [employer] Breast pump and paper work filled out. Transfer team from [facility] now in the room, RN to return to set up pump and have mother sign paperwork. 1730 RN checked in on mother and she was still upset. Will report to Primary RN. 1830 Primary RN gave instructions given on cleaning, care, usage, that there should be no pain, pumping schedule for milk production, collection, and storage of human milk. Patient was assessed for correct placement, flange size (both nipples measured 17mm and she would use the size 19 flange for the Zomee pump but primary RN unable to put together, she pulled a hospital pump and she will use a size 21 flange), to pump for comfort and nipple stretching/stimulation for adequate milk production every 3 hours (8 times in 24 hours) 1-2 times at night. Parents are encouraged to record the pumping schedule on the feeding sheet.?Mother voiced understanding of the education shared along with mom/baby guide and the pump measurement, flange fit handout for additional resource information.
[2024-10-04 05:53] LABS: Hematocrit 31.6 % (37.0-47.0); Hemoglobin 10.8 g/dL (12.0-15.0); Immature Platelet Fraction Pct 9.4 % (0.9-11.2); Mean Corpuscular HGB Conc 34.2 g/dl (32-36); Mean Corpuscular Volume 96.6 fl (80-100); Mean Platelet Volume 11.9 fl (7.4-10.4); Platelet Count Result 127 k/mm3 (150-375); Red Blood Count 3.27 M/mm3 (4.2-5.4); Red Cell Distribution Width 12.4 % (11.5-14.5); White Blood Count 10.4 K/mm3 (4.5-10.0)
[2024-10-04 05:59] LABS: Alanine Aminotransferase 171 U/L (6-35); Albumin Level 2.7 g/dL (3.5-5.1); Alkaline Phosphatase 326 U/L (38-126); Anion Gap 7 mmol/L (4-12); Aspartate Amino Transferase 151 U/L (14-36); Bilirubin,Total 0.9 mg/dL (0.2-1.3); Blood Urea Nitrogen 5 mg/dL (7-17); Calcium 8.6 mg/dL (8.4-10.2); Carbon Dioxide 21 mmol/L (22-30); Chloride 107 mmol/L (98-107); Estimated Glomerular Filt Rate > 60; Glucose 77 mg/dL (65-110); Potassium 3.9 mmol/L (3.4-5.0); Sodium 135 mmol/L (137-145)
[2024-10-04 07:30] VITALS: BP 133/93; PULSE 59; RESP 18; TEMP 36.7
--- NOTE | 2024-10-04 07:54 | PM.OBDSVD ---
DS: Admitting Diagnosis Discharge Date 10/04/24 Admitting Diagnosis Intrauterine at term DS: Discharge Diagnosis Discharge Diagnosis (1) Normal vaginal delivery: Code(s): O80 - Encounter for full-term uncomplicated delivery Status: Acute OB - DS: Summary OB Procedures : None OB Procedures Intrapartum: Spontaneous Vag Delivery OB Procedures: : None Peripartum Data Laceration Description: Perineal - 1st Degree Episiotomy description: None Status at Discharge Functional status at discharge: independent ambulation Overall status at discharge: patient is back to baseline Time Spent with Patient Time attestation: Total time spent providing and/or coordinating discharge services: Time spent: Less than 30 minutes Exam Const: General: comfortable and no acute distress Resp: Effort & Inspection: normal respiratory effort Auscultation: clear to auscultation bilaterally Cardio: Rate: regular rate GI: GI Palp: Yes Soft to palpation Auscultation: normal bowel sounds Other: Fundus firm below umbilicus Psych: Appearance: grossly normal Mental Status: mental status grossly normal Affect: normal affect DS: Data Data Completed and Pending Labs on day of discharge: Labs from last 24 hours 10/04/24 10/04/24 10/03/24 05:41 05:40 08:58 WBC 10.4 H 8.8 RBC 3.27 L 4.08 L Hgb 10.8 L 13.1 Hct 31.6 L 38.6 MCV 96.6 94.6 MCH 33.0 32.1 MCHC 34.2 33.9 RDW 12.4 12.6 Plt Count 127 L 160 MPV 11.9 H 12.3 H Immature Gran % (Auto) 0.6 H Neut % (Auto) 74.6 H Lymph % (Auto) 18.3 [place] % (Auto) 5.6 Eos % (Auto) 0.6 Baso % (Auto) 0.3 Lymph # (Auto) 1.61 [place] # (Auto) 0.5 Eos # (Auto) 0.1 Baso # (Auto) 0.0 Abs Immat Gran (auto) 0.05 H Absolute Neuts (auto) 6.6 Absolute Nucleated RBC 0.000 Nucleated RBC % 0.0 % Immature Plt Fraction 9.4 Sodium 135 L Potassium 3.9 Chloride 107 Carbon Dioxide 21 L Anion Gap 7 BUN 5 L Creatinine 0.49 L Estim Creat Clear Calc Not Reportable Estimated GFR > 60 Glucose 77 Calcium 8.6 Total Bilirubin 0.9 AST 151 H ALT 171 H Alkaline Phosphatase 326 H Total Protein 6.0 L Albumin 2.7 L Syphilis IgG/IgM Ab Negative RPR Titer Cancelled RPR Cancelled RPR Titer Add Testing Cancelled T.pallidum Ab (FTA-ABS) Cancelled T.pall Ab(FTA-ABS)Reflex Cancelled HIV 1&2 Ab/P24 Ag 4thGn Negative Blood Type O Positive Antibody Screen Negative Discharge Plan Discharge Discharging Clinician: Omkar Marin Activity: as tolerated and pelvic rest Diet: regular Patient Instructions: Vaginal Delivery (DC) Patient Language: Tamazight Follow-up/Referrals: Eliceo Rosas MD [Physician] - 4 Weeks Discharge Medications: New acetaminophen 500 mg tablet 500 mg PO Q6H PRN (Reason: pain) Qty: 30 0RF ibuprofen 600 mg tablet 600 mg PO Q6H PRN (Reason: pain) Qty: 30 0RF Discontinued Unisom (doxylamine) 25 mg tablet 25 mg PO QHS PRN (Reason: sleep) No Action Classic 28 mg iron- 800 mcg tablet 1 tablet PO DAILY pyridoxine (vitamin B6) 10 mg tablet 10 mg PO DAILY Date of admission: 10/03/24 08:16 Primary Care Provider: UNKNOWN,DOCTOR Admitting Provider: Eliceo Rosas Attending physician on admission: Eliceo Rosas
--- NOTE | 2024-10-04 08:25 | PC.NURSE ---
Consulted with mother concerning needs and she shared that she needed assistance setting up her Zomee pump, RN set up the pump for her and showed her the QR codes she can scan to watch videos if she needs a refresher. Reinforced understanding of milk production, transition of milk, signs of adequate intake, transition of stool, prevention/relief of engorgement, plugged ducts, mastitis, responsive watching for feeding cues, the different methods of stimulating infant to breastfeed 1-3 hours after the start of the last feeding, community resources, and when to call a provider using the resource of the feeding sheet along with the mom and baby guide. Mother voiced understanding of the information shared, when to call for assistance, denies any additional assistance or education at this time. Reported to the Primary RN.
[2024-10-04] MEDS: POLYSACCHARIDE IRON COMPLEX 150 MG CAPSULE PO (09:03)
[2024-10-04] MEDS: DOCUSATE SODIUM 100 MG CAPSULE PO (09:03)
[2024-10-04] MEDS: MULTIVIT/MIN/PREN/FOL AC/IRON TABLET 1 TAB PO (09:03)
[2024-10-04] MEDS: MEASLES,MUMPS,RUBELLA VACCINE 0.5 ML VIAL SUB-Q (09:04)
[2024-10-04] MEDS: IBUPROFEN 600 MG TABLET PO (09:04)
== END 2024-10-04 10:02 | disposition home or self-care (01) | DRG 807 ==
LOC: ANHOB2 10-04 08:34 → ANHLDR 10-07 08:42 → ANHOB2 10-07 08:42
PROVIDERS: Admitting Provider Obstetrics & Gynecology; Visit Provider Student in an Organized Health Care Education/Training Program
DX: O77.0 Labor and delivery complicated by meconium in amniotic fluid (principal); Z37.0 Single live birth; O70.0 First degree perineal laceration during delivery; Z3A.39 39 weeks gestation of pregnancy
CPT/HCPCS: 36415; 80053; 85025; 85027; 85055; 86593; 86703; 86850; 86900; 86901; 90710; A9270; G0432; J2590